=== PATIENT | male | born 1990 | race Hispanic/Latino ===

== ENCOUNTER 2020-06-10 08:55 | Emergency (ER) | payer SELFPAY ==
[2020-06-10] MEDS ORDERED: HYDROCODONE/CHLORPHEN 5 ML/OSYR ONE (10:55)
[2020-06-10] MEDS ORDERED: dexAMETHasone 10 MG/ML VIAL ONE (10:55)
[2020-06-10 10:58] LABS: Absolute Lymphocytes (CBC) 0.9 K/uL (0.7-4.9); Basophils % 0.2 % (0-1.3); Hematocrit 42.8 % (39.6-49.0); Lymphocytes % 14.9 % (15.3-44.8); RBC Red Blood Cell Count 4.87 M/uL (4.33-5.43)
[2020-06-10 11:01] LABS: C-Reactive Protein 40.7 mg/L (<3.00); Potassium 3.7 mmol/L (3.5-5.1)
--- NOTE | 2020-06-10 11:17 | RAD REPORT ---
EXAM DESCRIPTION: RAD - Chest Single View - 06/10/2020 10:32 am CLINICAL HISTORY: Cough;SOB COMPARISON: August 2017 Two view chest TECHNIQUE: AP portable chest image was obtained 06/10/2020 10:32 am . FINDINGS: Lung volumes are normal. Patchy parenchymal opacification present primarily in the bilater al suprahilar regions of each upper lobe. Additional patchy opacities are seen in the lung mujica. Gi mariana the provided history, this is most likely a mild COVID-19 pneumonia. Heart size is prominent. Vasculature within normal limits. No measurable pleural effusion and no pne umothorax. No acute bony abnormality seen. No acute aortic findings suspected. IMPRESSION: Bilateral pneumonia pattern most likely COVID-19 pneumonia.
--- NOTE | 2020-06-10 11:21 | ER ---
Nurse's Notes [facility] Name: Edinson Balderas Jr Age: 30 yrs Sex: Male : 1990 Arrival Date: 06/10/2020 Time: 08:56 Bed 16 Private MD: Diagnosis: Other viral [id number];Coronavirus infection, unspecified Presentation: 06/10 09:06 Acuity: MAGY 3 dm5 09:27 Chief complaint: Patient states: has COVID, first symptoms were 9 days ago. I feel dm5 like my breathing is getting worse. I have asthma and it is difficult to take a deep breath. Coronavirus screen: Client denies travel out of the [place] in the last 14 days. difficulty breathing, Client presents with at least one sign or symptom that may indicate coronavirus-19. Standard/surgical mask placed on the client. Ebola Screen: Patient negative for fever greater than or equal to 101.5 degrees Fahrenheit, and additional compatible Ebola Virus Disease symptoms Patient denies exposure to infectious person. Patient denies travel to an Ebola-affected area in the 21 days before illness onset. No symptoms or risks identified at this time. Initial Sepsis Screen: Does the patient meet any 2 criteria? No. Patient's initial sepsis screen is negative. Does the patient have a suspected source of infection? Yes: Productive cough/pneumonia. Risk Assessment: Do you want to hurt yourself or someone else? Patient reports no desire to harm self or others. Onset of symptoms was June 10, 2020. 09:27 Method Of Arrival: Ambulatory dm5 Triage Assessment: 10:15 Respiratory: the patient has mild shortness of breath. iw 10:15 Respiratory: Onset: The symptoms/episode began/occurred a week ago . iw Historical: - Allergies: 10:07 Aspirin; iw 10:07 PENICILLINS; iw - Home Meds: 10:07 albuterol sulfate 90 mcg/actuation Inhl HFAA as needed [Active]; iw - PMHx: 10:07 Asthma; iw - PSHx: 10:07 None; iw - Immunization history:: Adult Immunizations up to date. - Social history:: Smoking status: Patient denies any tobacco usage or history of. Screenin:34 Abuse screen: Denies threats or abuse. Denies injuries from another. Nutritional iw screening: No deficits noted. Tuberculosis screening: No symptoms or risk factors identified. Fall Risk None identified. Assessment: 10:08 General: Appears in no apparent distress. Behavior is calm, cooperative. Respiratory: iw Reports cough that is non-productive, Airway is patent Respiratory effort is even, unlabored, Breath sounds are clear bilaterally. 11:34 Reassessment: Patient appears in no apparent distress at this time. Patient and/or iw family updated on plan of care and expected duration. Pain level reassessed. Patient is alert, oriented x 3, equal unlabored respirations, skin warm/dry/pink. Pain: Denies pain. Cardiovascular: Rhythm is regular. Vital Signs: 10:07 BP 116 / 75; Pulse 94; Resp 18 S; Temp 98.6; Pulse Ox 100% on R/A; iw ED Course: 08:56 Patient arrived in ED. ds1 09:02 Antonino Valadez PA is PHCP. jr8 09:02 Dayo Hernandez MD is Attending Physician. jr8 09:06 Triage completed. dm5 09:49 Stefania Lynn, BJORN is Primary Nurse. iw 10:08 Arm band placed on. iw 10:33 CXR XRAY In Process Unspecified. EDMS 10:40 Initial lab(s) drawn, by ma, sent to lab. Inserted saline lock: 20 gauge in left dh3 antecubital area, using aseptic technique. Blood collected. 11:05 COVID swab sent to lab. em1 11:34 No provider procedures requiring assistance completed. IV discontinued, intact, iw bleeding controlled, No redness/swelling at site. Pressure dressing applied. 11:35 Patient has correct armband on for positive identification. iw Administered Medications: 10:59 Drug: Decadron - Dexamethasone 10 mg Route: IVP; Site: left antecubital; iw 10:59 Drug: Tussionex Pennkinetic ER 5 ml Route: PO; iw Outcome: 11:21 Discharge ordered by . jr8 11:34 Discharged to home ambulatory. iw 11:34 Condition: good 11:34 Discharge instructions given to patient, Instructed on discharge instructions, follow up and referral plans. medication usage, Demonstrated understanding of instructions, follow-up care, medications, Prescriptions given X 2. 11:35 Patient left the ED. iw Signatures: Dispatcher [employer] EDMD Ursula Otero, RN RN dm5 Vicki Holland ds1 Stefania Lynn RN RN iw Calin Cherry em1 Antonino Valadez PA PA jr8 Yeimy Holland 3 Corrections: (The following items were deleted from the chart) 10:37 10:07 Pulse 94bpm; Resp 18bpm; Spontaneous; Pulse Ox 100% RA; iw iw 11:00 10:07 BP 116 / 75; Pulse 94bpm; Resp 18bpm; Spontaneous; Pulse Ox 100% RA; iw iw
--- NOTE | 2020-06-10 11:21 | EDPHYS ---
Physician Documentation [facility] Name: Edinson Balderas Jr Age: 30 yrs Sex: Male : 1990 Arrival Date: 06/10/2020 Time: 08:56 Bed 16 Private MD: ED Physician Dayo Hernandez HPI: 06/10 11:03 This 30 yrs old Male presents to ER via Ambulatory with complaints of jr8 Breathing Difficulty. 11:03 The patient has shortness of breath at rest. Onset: The symptoms/episode began/occurred jr8 gradually, 1 week(s) ago. Duration: The symptoms are continuous. The patient's shortness of breath is aggravated by light activity. Associated signs and symptoms: Pertinent positives: non-productive cough. Severity of symptoms: At their worst the symptoms were mild in the emergency department the symptoms are unchanged. The patient has not experienced similar symptoms in the past. The patient has not recently seen a physician. Patient stated that this is day 10 of symptoms consistent with COVID. Stated that his tested positive and then he started with fever and cough 10 days ago. History of asthma. Now having increased cough and shortness of breath . Historical: - Allergies: 10:07 Aspirin; iw 10:07 PENICILLINS; iw - Home Meds: 10:07 albuterol sulfate 90 mcg/actuation Inhl HFAA as needed [Active]; iw - PMHx: 10:07 Asthma; iw - PSHx: 10:07 None; iw - Immunization history:: Adult Immunizations up to date. - Social history:: Smoking status: Patient denies any tobacco usage or history of. ROS: 11:03 Eyes: Negative for injury, pain, redness, and discharge, ENT: Negative for injury, jr8 pain, and discharge, Neck: Negative for injury, pain, and swelling, Cardiovascular: Negative for chest pain, palpitations, and edema, Abdomen/GI: Negative for abdominal pain, nausea, vomiting, diarrhea, and constipation, Back: Negative for injury and pain, MS/Extremity: Negative for injury and deformity, Skin: Negative for injury, rash, and discoloration, Neuro: Negative for headache, weakness, numbness, tingling, and seizure. 11:03 Respiratory: Positive for cough, dyspnea on exertion, shortness of breath. Exam: 11:03 Eyes: Pupils equal round and reactive to light, extra-ocular motions intact. Lids and jr8 lashes normal. Conjunctiva and sclera are non-icteric and not injected. Cornea within normal limits. Periorbital areas with no swelling, redness, or edema. ENT: Nares patent. No nasal discharge, no septal abnormalities noted. Tympanic membranes are normal and external auditory canals are clear. Oropharynx with no redness, swelling, or masses, exudates, or evidence of obstruction, uvula midline. Mucous membranes moist. Neck: Trachea midline, no thyromegaly or masses palpated, and no cervical lymphadenopathy. Supple, full range of motion without nuchal rigidity, or vertebral point tenderness. No Meningismus. Cardiovascular: Regular rate and rhythm with a normal S1 and S2. No gallops, murmurs, or rubs. Normal PMI, no JVD. No pulse deficits. Abdomen/GI: Soft, non-tender, with normal bowel sounds. No distension or tympany. No guarding or rebound. No evidence of tenderness throughout. Back: No spinal tenderness. No costovertebral tenderness. Full range of motion. Skin: Warm, dry with normal turgor. Normal color with no rashes, no lesions, and no evidence of cellulitis. MS/ Extremity: Pulses equal, no cyanosis. Neurovascular intact. Full, normal range of motion. Neuro: Awake and alert, GCS 15, oriented to person, place, time, and situation. Cranial nerves II-XII grossly intact. Motor strength 5/5 in all extremities. Sensory grossly intact. Cerebellar exam normal. Normal gait. 11:03 Respiratory: the patient does not display signs of respiratory distress, Respirations: tachypnea, that is mild, Breath sounds: are clear throughout, no bronchial sounds, no decreased breath sounds, no rales, rhonchi, no stridor, no wheezing. Vital Signs: 10:07 BP 116 / 75; Pulse 94; Resp 18 S; Temp 98.6; Pulse Ox 100% on R/A; iw MDM: 10:18 Patient medically screened. jr8 11:03 Data reviewed: vital signs, nurses notes, lab test result(s), radiologic studies, plain jr8 films. Data interpreted: Pulse oximetry: on room air is 100 %. Interpretation: normal. Test interpretation: by ED physician or midlevel provider: plain radiologic studies, Mild pulmonary opacity bilateral present. Counseling: I had a detailed discussion with the patient and/or guardian regarding: the historical points, exam findings, and any diagnostic results supporting the discharge/admit diagnosis, lab results, radiology results, the need for outpatient follow up, a family practitioner, to return to the emergency department if symptoms worsen or persist or if there are any questions or concerns that arise at home. 06/10 10:20 Order name: CBC with Diff; Complete Time: 11:20 jr8 06/10 10:20 Order name: BMP; Complete Time: : jr8 06/10 10:05 Order name: CXR XRAY; Complete Time: 11:20 iw 06/10 10:20 Order name: CRP; Complete Time: : jr8 06/10 10:20 Order name: COVID-19 jr8 06/10 10:20 Order name: IV; Complete Time: 10:57 jr8 Administered Medications: 10:59 Drug: Decadron - Dexamethasone 10 mg Route: IVP; Site: left antecubital; iw 10:59 Drug: Tussionex Pennkinetic ER 5 ml Route: PO; iw Disposition: 17:18 Co-signature as Attending Physician, Dayo Hernandez MD I agree with the assessment and kdr plan of care. Disposition: 06/10/20 11:21 Discharged to Home. Impression: Other viral pneumonia - COVID-19, Coronavirus infection, unspecified. - Condition is Stable. - Discharge Instructions: Viral Respiratory Infection, [id number], COVID-19. - Prescriptions for Flovent HFA 110 mcg/actuation Inhalation Aerosol - inhale 2 puffs by INHALATION route 2 times per day; 1 Cartridge. Prednisone 20 mg Oral Tablet - take 1 tablet by ORAL route 2 times per day for 10 days; 20 tablet. - Medication Reconciliation Form, Thank You Letter, Antibiotic Education, Prescription Opioid Use form. - Follow up: Private Physician; When: 5 - 6 days; Reason: Recheck today's complaints, Continuance of care, Re-evaluation by your physician. - Problem is new. - Symptoms have improved. Signatures: Dispatcher [employer] EDMS Dayo Hernandez MD MD [facility] Stefania Lynn RN RN iw Antonino Valadez PA PA jr8 Corrections: (The following items were deleted from the chart) 11:35 11:21 06/10/2020 11:21 Discharged to Home. Impression: Other viral pneumonia - iw COVID-19; Coronavirus infection, unspecified. Condition is Stable. Forms are Medication Reconciliation Form, Thank You Letter, Antibiotic Education, Prescription Opioid Use. Follow up: Private Physician; When: 5 - 6 days; Reason: Recheck today's complaints, Continuance of care, Re-evaluation by your physician. Problem is new. Symptoms have improved. jr8
== END 2020-06-10 11:35 | disposition home or self-care (01) ==
LOC: ER 08:55
DX: U07.1 COVID-19 (principal); J12.82 Pneumonia due to coronavirus disease 2019; J45.909 Unspecified asthma, uncomplicated; Z88.0 Allergy status to penicillin; Z88.6 Allergy status to analgesic agent
CPT/HCPCS: 36415; 71045; 80048; 85025; 86140; 96374; 99284; J1100; U0002